=== PATIENT | female | born 1970 | race Hispanic/Latino ===

== ENCOUNTER 2022-08-05 20:42 | Emergency (ER) | payer SELFPAY ==
[~2022-08-05] VITALS: Ht 152.4 cm; Wt 61.2 kg
[2022-08-05 21:50] VITALS: BP 155/74
== END 2022-08-05 21:50 | disposition home or self-care (01) ==
LOC: FSED 20:46
DX: R19.7 Diarrhea, unspecified (principal); R50.9 Fever, unspecified; I10 Essential (primary) hypertension; E78.5 Hyperlipidemia, unspecified
CPT/HCPCS: 99282